=== PATIENT | female | born 1985 | race African-American/Black ===

== ENCOUNTER 2017-08-04 11:39 | Emergency (ER) | payer OTHER ==
[2017-08-04] MEDS: LORazepam 2 MG/ML VIAL (J2060) IM (13:50)
[2017-08-04] MEDS: KETOROLAC 60 MG/2 ML VIAL (J1885) IM (13:50)
== END 2017-08-04 14:24 | disposition home or self-care (01) ==
LOC: M ED 11:39
DX: S39.002A Unspecified injury of muscle, fascia and tendon of lower back, initial encounter (principal); X50.0XXA Overexertion from strenuous movement or load, initial encounter; Y92.018 Other place in single-family (private) house as the place of occurrence of the external cause; F17.210 Nicotine dependence, cigarettes, uncomplicated
CPT/HCPCS: J1885

== ENCOUNTER 2018-06-10 20:10 | Emergency (ER) | payer OTHER ==
[~2018-06-10 20:10] MED LIST: IBUP-1022 PO; SOMA350T PO
[2018-06-10] MEDS ORDERED: NORCO, ANEXSIA 5/325MG TABLET (HYDROcodone/ACETAMINOPHEN) PO ONE (21:45)
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
[2018-06-10 22:45] VITALS: BP 132/74
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
== END 2018-06-10 23:02 | disposition home or self-care (01) ==
LOC: M ED 20:10
DX: S00.93XA Contusion of unspecified part of head, initial encounter (principal); V49.40XA Driver injured in collision with unspecified motor vehicles in traffic accident, initial encounter; J01.20 Acute ethmoidal sinusitis, unspecified; Y92.9 Unspecified place or not applicable